=== PATIENT | female | born 1945 | race Caucasian/White ===

== ENCOUNTER → 2020-06-16 | Outpatient (CLI) | payer MEDICARE ==
[~2020-06-16] VITALS: Ht 170.2 cm; Wt 95.3 kg
[~2020-06-16] MED LIST: AREDS 2 PO; ASA81BEC PO; CALCIUM 500 +1 EAC1 PO; DICLOFENAC SODI75 MG PO; ELIQUIS5 MG PO; LASIX 40 MG TAB40 M2 PO; LEXAPRO 10 MG T10 M1 PO; LIPITOR40 MG PO; LORCET 5-325 M1 EACH PO; LOSARTAN POTAS100 MG PO; NORVASC 2.5 MG2.5 M1 PO; OXYCODONE HCL 55 MG PO; TRAMADOL 50 MG50 MG PO; TRAZODONE HCL50 MG PO; VITAMIN D PO; VITAMIN D3 PO; XYZAL5 MG PO
[2020-06-16 11:05] LABS: ABSOLUTE BASOPHILS 0.1 thou/uL (0.0-0.2); ABSOLUTE EOSINOPHILS 0.2 thou/uL (0.0-0.7); ABSOLUTE LYMPHOCYTES 1.7 thou/uL (0.8-5.3); ABSOLUTE MONOCYTES 0.6 thou/uL (0.0-1.2); ABSOLUTE NEUTROPHILS 2.7 thou/uL (1.6-8.1); BASOPHILS 1.3 %; EOSINOPHILS 4.4 %; HEMATOCRIT 39.8 % (37.0-47.0); HEMOGLOBIN 13.3 gm/dL (12.0-15.0); LYMPHOCYTES 31.5 %; MCH 29.3 pg (26.0-34.0); MCHC 33.5 g/dL (28.0-37.0); MCV 87.6 fL (80.0-100.0); MPV 7.7 fl. (7.2-11.1); NUCLEATED RBCS 0 /100WBC; PLATELET COUNT* 280 thou/uL (150-400); POLYS 51.8 %; RBC 4.54 mil/uL (4.20-5.00); RDW-CV 13.2 % (10.5-14.5); WBC 5.3 thou/uL (4.0-11.0)
[2020-06-16 11:15] LABS: APTT 25.6 Seconds (25.0-31.3); PROTIME 10.2 Seconds (9.20-11.50)
[2020-06-16 11:42] LABS: ESR (SEDRATE) 14 mm/hr (0-30)
[2020-06-16 11:44] LABS: CALCIUM 8.8 mg/dL (8.5-10.1); CREATININE 1.7 mg/dL (0.6-1.3); POTASSIUM 3.5 mmol/L (3.5-5.1); TOTAL BILIRUBIN 0.5 mg/dL (<0.1-1.0); TOTAL PROTEIN 8.2 g/dL (6.4-8.2)
--- NOTE | 2020-06-16 11:54 | EKG ---
[place] [address] ELECTROCARDIOGRAM REPORT Name: SRIRAM VILLA Room: [facility]#: [id number] Admission: 06/16/20 Attend Phys: Michele Posada DO Discharge: Date of : 43 Date of Service: 06/16/20 1120 Report #: [id number] THIS REPORT FOR: //name// [facility] Test Date: 2020-06-16 Test Time: 11:20:42 Pat Name: SRIRAM VILLA Department: Room: Gender: F Insurance Investigator: : [id number] Requested By: Michele Posada Order Number: [id number] Reading MD: Michael Gomez Measurements Intervals [place] Rate: 69 P: 9 PA: 148 QRS: -17 QRSD: 90 T: 28 QT: 411 QTc: 441 Interpretive Statements Sinus rhythm Borderline left axis deviation Baseline wander in lead(s) V2 No previous ECG available for comparison Electronically Signed On 06-16-2020 11:54:46 CDT by Michael Gomez [email or web address] <ELECTRONICALLY SIGNED> By: Michael Gomez MD, [facility] 06/16/20 1154 1120 1120 Michael Gomez MD, [facility] /EPI
== END ==
LOC: M.LAB 07:09 → M.SUR 17:02
PROVIDERS: ATTEND Orthopaedic Surgery
DX: Z01.812 Encounter for preprocedural laboratory examination (principal); Z20.828 Contact with and (suspected) exposure to other viral communicable diseases; M16.11 Unilateral primary osteoarthritis, right hip

== ENCOUNTER 2020-06-22 10:35 | Observation (INO) | payer MEDICARE ==
[~2020-06-22] VITALS: Ht 170.2 cm; Wt 95.3 kg
[~2020-06-22 10:35] MED LIST changes: -ELIQUIS5 MG PO; -OXYCODONE HCL 55 MG PO
[2020-06-22 11:00] VITALS: BP 144/75
[2020-06-22 16:35] VITALS: BP 97/62
[2020-06-22 20:00] VITALS: BP 140/67
[2020-06-23 00:58] VITALS: BP 109/79
[2020-06-23 03:54] LABS: HEMATOCRIT 32.3 % (37.0-47.0); HEMOGLOBIN 10.7 gm/dL (12.0-15.0)
[2020-06-23 04:54] VITALS: BP 147/70
[2020-06-23] MEDS ORDERED: ELIQUIS5 MG PO (08:00)
[2020-06-23] MEDS ORDERED: OXYCODONE HCL 55 MG PO (08:00)
--- NOTE | 2020-06-23 10:43 | OP ---
[address] [address] OPERATIVE REPORT Name: SRIRAM VILLA Room: [address] Yung Rose#: [id number] Admission: 06/22/20 Attend Phys: Josefina Olivarez Discharge: Date of : 43 Report #: [id number] THIS REPORT FOR: //name// cc: Fabiola Westbrook Angela Jo RNP ~ CC: Fabiola Yung DATE OF SERVICE: 06/22/2020 Zafar Barrett DO dictating for Dr. Michele Posada. PREOPERATIVE DIAGNOSIS: Advanced degenerative joint disease, right hip. POSTOPERATIVE DIAGNOSIS: Advanced degenerative joint disease, right hip. PROCEDURE PERFORMED: Right total hip arthroplasty using the [employer] Taperloc system with the following components: 1. A size 50 mm G7 finned acetabular shell. 2. A 36 mm vitamin E high wall polyethylene component. 3. A size 10 Taperloc complete standard offset femoral stem. 4. A 36 mm ceramic head with a -3 neck adapter. 5. A 6.5 mm bone screws of length, 25 and 30. SURGEON: Michele Posada DO PROFESSIONAL NURSE: Talia Schafer PA-C; Zafar Barrett DO; Tayler Posada DO ANESTHESIA: General with local. ESTIMATED BLOOD LOSS: 200 mL. SPECIMENS: None. COMPLICATIONS: None. DISPOSITION: Stable to PACU. ANTIBIOTICS: 2 g IV Ancef preop. INDICATIONS FOR SURGERY: The patient is a 75-year-old female who we followed in clinic for quite some time regarding right hip pain. Imaging consistent with advanced DJD. She tried and failed extensive conservative measures. Pain ____ database interfering with ability to perform her ADLs. Goal surgery is reduced [place] [address] OPERATIVE REPORT Name: SRIRAM VILLA Room: [address] Yung Rose#: [id number] Admission: 06/22/20 Attend Phys: Josefina Olivarez Discharge: Date of : 43 Report #: [id number] OPERATIVE FINDINGS: Upon operative inspection of the right hip, she was found to have normal appearing joint effusion. Eburnation of bone with osteophytes and subchondral sclerosis. DESCRIPTION OF PROCEDURE: The patient was seen in the preoperative area. Written consent was obtained. The operative site was marked. The patient brought back to the operative suite, given the benefit of general anesthesia. She was placed on a well-padded [place] table. Both lower extremities were well-padded and placed in the boots, subsequently ____ spars. She was placed against a well-padded perineal post. Right lower extremity was then prepped and draped in normal sterile fashion. A surgical timeout was performed. Correct side, site and procedure were verified. All OR personnale were in agreement. Procedure began with a standard anterior incision approximately 1 cm lateral and distal to ASIS. Sharp dissection down to the skin. We bovied down to the level of the tensor fascia. We made a renee incision through the fascia with a knife and released the remainder of the visualized fascia with scissors. We developed to plane between the sartorius and the tensor. We identified the superior and inferior aspects of femoral neck. We ligated the branches of the circumflex utilizing [employer] Bovie electrocautery. We then placed our retractors appropriately around the neck. A standard capsulectomy was created. We made a standard neck cut approximately 1 cm proximal to the lesser trochanter. Napkin ring cut was also made and the bone was removed. We then placed the appropriate retractors around the acetabulum. Excess soft tissue, capsule and labral tissue was removed. We reamed beginning with the 49 under fluoroscopy. This appeared to be the appropriate size. We reamed using fluoroscopic imaging to guide the depth of the ream. At this point, we were happy with our placement. We therefore opened the final 50 mm shell. This was impacted into place in standard fashion. The screws were drilled in the posterior superior quadrant, a 25 and 30 mm screw inserted. We placed the manhole cover. We took another image to ensure the appropriate position of the cup and screws. We then inserted the high wall liner in the superior position. We then turned our attention to the femur, which was externally rotated to 120 degrees. We performed inferior capsular release and placed our retractors appropriately. We put the hook in underneath the femur and extended and adducted the leg. We were then able to perform a posterior release in order to get adequate visualization of the proximal femur. The lift was used to assist in this. We then used the box osteotome followed by the rattail rasp and sequentially broached up to a size 10. The standard offset and a -3 neck were trialed. The hip was reduced. Imaging demonstrated appropriate size stem. Good leg lengths. The boot was taken out as far throughout the range of motion. It was stable in all directions. We then dislocated the hip, placed the retractors appropriately and extended and adducted the leg again. Trial components were removed. Final size 10 stem was impacted into place. It was sitting in a similar position. We therefore opened and impacted the 36 mm head with -3 neck adapter on to the stem. Hip was reduced. Final fluoroscopic images were obtained and saved to the PACS system. The wound was thoroughly irrigated[place] [address] OPERATIVE REPORT Name: SRIRAM VILLA Room: [address] Yung Rose#: [id number] Admission: 06/22/20 Attend Phys: Josefina Olivarez Discharge: Date of : 43 Report #: [id number] introduced throughout the surgical site. Orthopedic cocktail was injected around the hip. The fascial layer was closed with a running #1 Stratafix. Subcutaneous tissues were closed with 2-0 Monocryl in a simple inverted interrupted fashion. Skin was reapproximated with a running 3-0 Stratafix suture. Dermabond skin glue and a sterile Mepilex were applied. The patient was awoken from anesthesia and transferred to PACU in stable condition with no complications. Needle and sponge counts correct x 2. Dr. Posada was present for all critical aspects of the case. <ELECTRONICALLY SIGNED> By: Everton Anderson DO 06/23/20 1043 1432 [id number] Posada DO /nt
[2020-06-23 12:00] VITALS: BP 122/61
[2020-06-23 16:00] VITALS: BP 127/50
[2020-06-24] VITALS (7 sets, daily range): BP systolic 107–144; BP diastolic 61–66
[2020-06-24 05:31] LABS: HEMOGLOBIN 9.6 gm/dL (12.0-15.0)
== END 2020-06-24 17:15 | disposition home or self-care (01) ==
LOC: M.TBA 10:35 → M.ORTHSURG 10:35 → M.TBA 10:35 → M.ORTHSURG 11:03
PROVIDERS: Orthopaedic Surgery; ADMIT Internal Medicine; ATTEND Internal Medicine
DX: M16.11 Unilateral primary osteoarthritis, right hip (principal); I10 Essential (primary) hypertension; F32.9 Major depressive disorder, single episode, unspecified; D50.0 Iron deficiency anemia secondary to blood loss (chronic); E66.9 Obesity, unspecified; Z68.32 Body mass index [BMI] 32.0-32.9, adult; Z79.899 Other long term (current) drug therapy